=== PATIENT | female | born 1955 | race Caucasian/White ===

== ENCOUNTER → 2019-03-28 | Outpatient (CLI) | payer OTHER ==
--- NOTE | 2019-03-28 20:52 | ECGEPIP ---
[facility] Test Date: 2019-03-28 Pat Name: PADMINI HILL Department: Room: - Gender: Female Assistant Inventory Manager: NELLY : 1955 Requested By: MICHELLE Ingram Order Number: [id number] Reading MD: Dusty Rooney Measurements Intervals Warren Rate: 71 P: 56 CT: 176 QRS: -4 QRSD: 104 T: 57 QT: 360 QTc: 391 Interpretive Statements SINUS RHYTHM NO PRIOR Electronically Signed on 03-28-2019 20:52:39 EST by Dusty Rooney
== END ==
LOC: M EKG 08:45
PROVIDERS: ATTEND Orthopaedic Surgery
DX: Z01.810 Encounter for preprocedural cardiovascular examination (principal); M21.42 Flat foot [pes planus] (acquired), left foot

== ENCOUNTER → 2020-07-19 | Outpatient (CLI) | payer OTHER | LOC: M LABSMTC 10:13 | PROVIDERS: ATTEND Pediatrics | DX: Z11.52 Encounter for screening for COVID-19 (principal) ==